=== PATIENT | female | born 1980 | race Caucasian/White ===

== ENCOUNTER 2017-02-23 16:22 | Emergency (ER) | payer BC, OTHER ==
[~2017-02-23] VITALS: Ht 157.5 cm; Wt 79.5 kg
[~2017-02-23 16:22] MED LIST: CYMBALTA; CYMBALTA 60MG60 MG PO; DESYREL 100MG100 MG PO; FLEXERIL10 MG PO; LAMICTAL 100MG100 MG PO; LORTAB 5/500 501 TAB PO; MVI; NORCO 325 MG-7.1 TAB PO; TESSALON P100 MG/CAP PO; TRAZADONE HYDR100 MG PO; TRAZODONE HCL100 MG PO; TUSS PO; ZOCOR 40MG40 MG PO
[2017-02-23 16:24] VITALS: TEMP 98.6
[2017-02-23] MEDS ORDERED: BREO IH (16:41)
[2017-02-23] MEDS ORDERED: PROAIR HFA0.09 MG/AC IH (16:41)
[2017-02-23 16:47] VITALS: BP 144/94
[2017-02-23 17:41] VITALS: PULSE 69
== END 2017-02-23 17:56 | disposition home or self-care (01) ==
LOC: COL.ER 16:22
DX: R06.02 Shortness of breath (principal); F41.9 Anxiety disorder, unspecified; R07.89 Other chest pain; J45.909 Unspecified asthma, uncomplicated

== ENCOUNTER 2018-03-07 10:00 | Outpatient (RCR) | payer OTHER ==
[~2018-03-07 10:00] MED LIST changes: +BREO IH; +PROAIR HFA0.09 MG/AC IH
== END 2018-05-30 | disposition home or self-care (01) ==
LOC: WSOH
DX: S93.421A Sprain of deltoid ligament of right ankle, initial encounter (principal); S16.1XXA Strain of muscle, fascia and tendon at neck level, initial encounter; R51 Headache; Z79.899 Other long term (current) drug therapy; X50.0XXA Overexertion from strenuous movement or load, initial encounter; Y92.811 Bus as the place of occurrence of the external cause; Y99.0 Civilian activity done for income or pay

== ENCOUNTER → 2020-05-23 | Outpatient (CLI) | payer BC | LOC: ZCOL.LAB 16:38 | DX: R50.9 Fever, unspecified (principal); R05 Cough; M79.10 Myalgia, unspecified site; R53.83 Other fatigue; Z20.828 Contact with and (suspected) exposure to other viral communicable diseases ==

== ENCOUNTER 2020-08-26 18:03 | Emergency (ER) | payer BC ==
[~2020-08-26] VITALS: Ht 157.5 cm; Wt 86.4 kg
[2020-08-26 18:09] VITALS: TEMP 98.5
[2020-08-26] MEDS ORDERED: ATIVAN 0.50.5 MG/TAB PO (18:31)
[2020-08-26 18:50] VITALS: BP 132/88; PULSE 98
== END 2020-08-26 18:53 | disposition home or self-care (01) ==
LOC: COL.ER 18:03
DX: F31.9 Bipolar disorder, unspecified (principal)

== ENCOUNTER → 2022-04-07 | Outpatient (CLI) | payer BC ==
[~2022-04-07] MED LIST changes: +ATIVAN 0.50.5 MG/TAB PO
== END ==
LOC: MC.RAD 13:20
DX: Z12.31 Encounter for screening mammogram for malignant neoplasm of breast (principal)

== ENCOUNTER 2024-06-29 11:56 | Emergency (ER) | payer BC ==
[~2024-06-29] VITALS: Ht 157.5 cm; Wt 100.0 kg
[~2024-06-29 11:56] MED LIST changes: +PREDNISONE20 MG PO
[2024-06-29 12:03] VITALS: BP 110/74; TEMP 98.6
[2024-06-29 12:56] VITALS: PULSE 80
== END 2024-06-29 13:01 | disposition home or self-care (01) ==
LOC: COL.ER 11:56
DX: T19.2XXA Foreign body in vulva and vagina, initial encounter (principal); W44.8XXA Other foreign body entering into or through a natural orifice, initial encounter